=== PATIENT | female | born 2005 | race Caucasian/White ===

== ENCOUNTER → 2024-08-26 | Outpatient (CLI) | payer BC, SELFPAY ==
[2024-08-26 13:40] LABS: Misc Send Out* See Sep Rpt
[2024-08-26 14:34] LABS: C-Reactive Protein < 0.5 mg/dL (0.0-0.9)
== END | disposition home or self-care (01) ==
PROVIDERS: PCP Internal Medicine; Referring Provider Allergy & Immunology; Visit Provider Allergy & Immunology
DX: L50.0 Allergic urticaria (principal); R23.4 Changes in skin texture
CPT/HCPCS: 36415; 82785; 86140

== ENCOUNTER 2024-10-08 23:53 | Emergency (ER) | payer BC, SELFPAY ==
[2024-10-09 01:01] VITALS: BP 120/79; PULSE 81; RESP 18; TEMP 37.1; O2SAT 99
--- NOTE | 2024-10-09 01:02 | EDNOTE_ITS ---
ED Wound/Laceration-RME/HPI General Chief Complaint: Wound/Laceration Stated Complaint: LEFT LOWER LEG LACERATION Time Seen by Provider: 10/08/24 23:55 Source: patient, RN notes reviewed and old records reviewed Arrival date/time: 10/08/24 23:53 Mode of arrival: wheelchair Limitations: no limitations RME / HPI RME / HPI narrative: 18yof presents to ED for LLE laceration that occurred tonight. Patient reports she scraped LLE against an open glass bottle, obtained laceration. 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 Related Data Home Medications ?Medication ?Instructions ?Recorded ?Confirmed albuterol sulfate 90 mcg/actuation 1 puff inhalation Q ID PRN Wheezing 11/04/23 11/04/23 aerosol inhaler Allergies Allergy/AdvReac Type Severity Reaction Status Date / Time No Known Allergies Allergy Verified 10/08/24 23:54 Review of Systems Review of Systems Systems Reviewed: All systems reviewed, normal except as documented Integumentary/Breasts Comments: Reports laceration Past Medical History Past Medical History RESPIRATORY: Positive Asthma GASTROINTESTINAL: Positive Obesity PSYCHO/SOCIAL: Positive Depression and Anxiety Social History SMOKING STATUS: Never smoker Travel History EBOLA RISK: No ED Exam General Limitations: Present no limitations General appearance: Present alert and in no apparent distress Head Head exam: Present atraumatic and normocephalic Eye Eye exam: Present normal appearance, PERRL and EOMI ENT ENT exam: Present normal exam and mucous membranes moist Neck Neck exam: Present normal inspection and full ROM Chest Chest inspection: Present normal inspection and symmetric chest wall rise Respiratory Respiratory exam: Present normal lung sounds bilaterally; Absent respiratory distress Cardiovascular Cardiovascular exam: Present regular rate and normal rhythm Extremities Exam Extremities exam: Present full ROM, normal capillary refill and other (Sensation intact) Neurological Exam Neurological exam: Present alert and oriented X3 Skin Skin exam: Present other (5cm linear laceration to LLE. Mild gaping, no active bleeding) Course Quality Measures none Vital Signs Vital signs: Vital Signs Temperature 98.8 F 10/09/24 01:01 Pulse Rate 81 10/09/24 01:01 Respiratory Rate 18 10/09/24 01:01 Blood Pressure 120/79 10/09/24 01:01 Pulse Oximetry (%) 99 10/09/24 01:01 Oxygen Delivery Method Room Air 10/09/24 01:01 PROCEDURES: Laceration Laceration 1: Site: lower extremity Side (If applicable): left Size (cm): 5 Description: linear Depth: simple, single layer Local Anesthetic: lidocaine 1% Amount of anesthesia used (mL): 5 Pre-repair: irrigated extensively Skin layer closed with: other (ethilon) Suture size (cm): 4-0 Number of sutures: 5 Technique: simple, interrupted Wound / Laceration MDM Narrative MDM Narrative:: 18yof presents to ED for LLE laceration that occurred tonight. Patient reports she scraped LLE against an open glass bottle, obtained laceration. 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 Laceration repaired with sutures. Patient tolerated procedure well, condition improved. Home wound care discussed. Instructed to return in 7-10 days for suture removal. Stable for dc, RTED precautions given. Patient data External records reviewed:: [facility] previous records (04/14/19 ED visit for wrist sprain) Clinical information provided by:: patient Social determinants that could affect healthcare access:: other (specify) (poor access to healthcare) Patient has the following chronic illnesses:: anxiety,depression, asthma, obesity How is presenting disease/condition affected by chronic disease/condition?: uneffected by Evaluation data The following diagnostics were reviewed and interpreted by me:: other (specify) (none) Lab and/or radiology exams considered but not ordered:: tib/fib xrays: do not suspect fx or fb Interpretation Summary: na Medications / Prescriptions Medications or Prescriptions considered but not ordered:: no antibiotics recommended at this time Medication administrations:: none Consultations Consultation(s) initiated? (list below): No Diagnosis Wound Differential Diagnosis: laceration, abrasion and avulsion of skin Most likely diagnosis given after review of the tests above:: leg laceration Admission Indicated Admission indicated?: not indicated Admission Request Was there a request for admission?: No Disposition Plan Disposition Plan: Discharge Discharge Attestation Discharge Attestation: The patient and all family members were given an opportunity to ask questions and understood the discharge instructions. Discharge instructions specifically effects, indications for sooner follow up or return to the emergency department, and the expected course of current diagnosis. Patient condition: Stable Discharge Plan Plan Patient Disposition: HOME (Self Care) Patient condition on transfer: Stable Prescriptions/Referrals Prescriptions/Med Rec: No Action albuterol sulfate 90 mcg/actuation Hfa Aerosol Inhaler 1 puff INHALATION QID PRN (Reason: Wheezing) Referrals: Morales Jones MD [Primary Care Provider] - In 1 week Problem List Clinical Impression: Laceration of left leg Patient/Caregiver Discharge Instructions Education Materials: ED Laceration: All Closures Additional Instructions: Return to ED or PCP in 7-10 days for suture removal. Print Language: Japanese Stand Alone Forms: Marcelina Award Info., Patient Portal Info Letter PA/BETTING AGENCY COUNTER CLERK Supervising Physician PA/BETTING AGENCY COUNTER CLERK Supervising Physician: Luda
[2024-10-09 02:53] VITALS: RESP 16
== END 2024-10-09 02:54 | disposition home or self-care (01) ==
PROVIDERS: Emergency Provider Emergency Medicine; PCP Internal Medicine
DX: S81.812A Laceration without foreign body, left lower leg, initial encounter (principal); W25.XXXA Contact with sharp glass, initial encounter
CPT/HCPCS: 12002; 99283